=== PATIENT | male | born 1955 | race Caucasian/White ===

== ENCOUNTER 2018-03-25 21:45 | Inpatient (IN) | payer BC ==
[2018-03-25] MEDS: ASPIRIN 325 MG TAB PO (22:40)
[2018-03-25 22:42] LABS: WHITE BLOOD COUNT 5.8 10^3/ul (4.8-10.8)
[2018-03-25 22:42] LABS: ADD MAN DIFF? NO; BASOPHILS % 0.5 % (0.0-2.0); EOSINOPHILS # 0.2 10^3/ul (0.0-0.5); EOSINOPHILS % 3.3 % (0.0-7.0); HEMATOCRIT 38.3 % (42.0-52.0); HEMOGLOBIN 13.3 g/dl (14.0-18.0); LYMPHOCYTES # 1.4 10^3/ul (0.8-2.9); LYMPHOCYTES % 23.4 % (15.0-51.0); MEAN CORPUSCULAR HEMOGLOBIN 30.8 pg (29.0-33.0); MEAN CORPUSCULAR HGB CONC 34.7 g/dl (32.0-37.0); MEAN CORPUSCULAR VOLUME 88.7 fl (82.0-101.0); MEAN PLATELET VOLUME 9.9 fl (7.4-10.4); MONOCYTE # 0.8 10^3/ul (0.3-0.9); MONOCYTES % 14.1 % (0.0-11.0); NEUTROPHIL # 3.4 10^3/ul (1.6-7.5); NEUTROPHILS % 58.4 % (39.0-77.0); PLATELET COUNT 161 10^3/UL (140-415); RED BLOOD COUNT 4.32 10^6/ul (4.70-6.10); RED CELL DISTRIBUTION WIDTH 13.6 % (11.5-14.5)
[2018-03-25 23:03] LABS: ANION GAP 11 (8-16); BLOOD UREA NITROGEN 13 mg/dl (7-20); CALCIUM 8.5 mg/dl (8.4-10.2); CARBON DIOXIDE 27 mmol/L (21-31); CHLORIDE 106 mmol/L (97-110); CREATININE 0.81 mg/dl (0.61-1.24); GLUCOSE 117 mg/dl (70-220); SODIUM 140 mmol/L (135-144)
[2018-03-25 23:16] LABS: B-TYPE NATRIURETIC PEPTIDE 43 PG/ML (0-125); TROPONIN-I < 0.012 ng/ml (0.000-0.120)
[2018-03-26 06:44] LABS: ADD MAN DIFF? NO
[2018-03-26 07:01] LABS: WHITE BLOOD COUNT 5.6 10^3/ul (4.8-10.8)
[2018-03-26 07:01] LABS: BASOPHILS % 0.7 % (0.0-2.0); EOSINOPHILS # 0.3 10^3/ul (0.0-0.5); EOSINOPHILS % 4.8 % (0.0-7.0); HEMATOCRIT 38.4 % (42.0-52.0); HEMOGLOBIN 13.4 g/dl (14.0-18.0); LYMPHOCYTES # 1.4 10^3/ul (0.8-2.9); LYMPHOCYTES % 24.6 % (15.0-51.0); MEAN CORPUSCULAR HEMOGLOBIN 30.8 pg (29.0-33.0); MEAN CORPUSCULAR HGB CONC 34.9 g/dl (32.0-37.0); MEAN CORPUSCULAR VOLUME 88.3 fl (82.0-101.0); MEAN PLATELET VOLUME 10.6 fl (7.4-10.4); MONOCYTE # 0.7 10^3/ul (0.3-0.9); MONOCYTES % 12.7 % (0.0-11.0); NEUTROPHIL # 3.2 10^3/ul (1.6-7.5); NEUTROPHILS % 56.8 % (39.0-77.0); PLATELET COUNT 152 10^3/UL (140-415); RED BLOOD COUNT 4.35 10^6/ul (4.70-6.10); RED CELL DISTRIBUTION WIDTH 13.8 % (11.5-14.5)
[2018-03-26 07:39] LABS: TROPONIN-I < 0.012 ng/ml (0.000-0.120)
[2018-03-26 07:40] LABS: ANION GAP 12 (8-16); BLOOD UREA NITROGEN 13 mg/dl (7-20); CALCIUM 8.5 mg/dl (8.4-10.2); CARBON DIOXIDE 25 mmol/L (21-31); CHLORIDE 108 mmol/L (97-110); CREATININE 0.75 mg/dl (0.61-1.24); GLUCOSE 92 mg/dl (70-220); SODIUM 141 mmol/L (135-144)
[2018-03-26 07:52] LABS: CREATINE KINASE 93 IU/L (23-200)
[2018-03-26] MEDS: RANOLAZINE (SR) 500 MG TAB PO ×2 (08:59→21:12)
[2018-03-26] MEDS: ASPIRIN (EC) 81 MG TAB PO (08:59)
[2018-03-26] MEDS: CLOPIDOGREL 75 MG TAB PO (09:00)
[2018-03-26] MEDS: ISOSORBIDE MONONITRATE(SR)30 MG TAB PO (09:00)
[2018-03-26] MEDS: LISINOPRIL 10 MG TAB PO (09:00)
[2018-03-26 12:10] LABS: CREATINE KINASE 84 IU/L (23-200)
[2018-03-26 12:19] LABS: CK INDEX 0.8; CK-MB 0.71 ng/ml (0.0-2.4); TROPONIN-I < 0.012 ng/ml (0.000-0.120)
[2018-03-26] MEDS: METOPROLOL 25 MG TAB PO ×2 (14:08→21:00)
[2018-03-26 18:48] LABS: TROPONIN-I < 0.012 ng/ml (0.000-0.120)
[2018-03-26] MEDS: ATORVASTATIN 10 MG TAB PO (21:12)
[2018-03-26 23:39] LABS: TROPONIN-I < 0.012 ng/ml (0.000-0.120)
[2018-03-27 06:01] LABS: ADD MAN DIFF? NO
[2018-03-27 06:06] LABS: WHITE BLOOD COUNT 6.6 10^3/ul (4.8-10.8)
[2018-03-27 06:06] LABS: BASOPHILS % 0.6 % (0.0-2.0); EOSINOPHILS # 0.1 10^3/ul (0.0-0.5); EOSINOPHILS % 2.1 % (0.0-7.0); HEMATOCRIT 36.7 % (42.0-52.0); HEMOGLOBIN 12.6 g/dl (14.0-18.0); LYMPHOCYTES # 2.1 10^3/ul (0.8-2.9); LYMPHOCYTES % 31.7 % (15.0-51.0); MEAN CORPUSCULAR HEMOGLOBIN 30.4 pg (29.0-33.0); MEAN CORPUSCULAR HGB CONC 34.3 g/dl (32.0-37.0); MEAN CORPUSCULAR VOLUME 88.4 fl (82.0-101.0); MEAN PLATELET VOLUME 10.3 fl (7.4-10.4); MONOCYTE # 0.8 10^3/ul (0.3-0.9); MONOCYTES % 12.8 % (0.0-11.0); NEUTROPHIL # 3.4 10^3/ul (1.6-7.5); NEUTROPHILS % 52.3 % (39.0-77.0); PLATELET COUNT 150 10^3/UL (140-415); RED BLOOD COUNT 4.15 10^6/ul (4.70-6.10); RED CELL DISTRIBUTION WIDTH 13.7 % (11.5-14.5)
[2018-03-27 06:34] LABS: ANION GAP 13 (8-16); BLOOD UREA NITROGEN 14 mg/dl (7-20); CALCIUM 8.3 mg/dl (8.4-10.2); CARBON DIOXIDE 24 mmol/L (21-31); CHLORIDE 105 mmol/L (97-110); CREATININE 0.87 mg/dl (0.61-1.24); GLUCOSE 99 mg/dl (70-220); POTASSIUM 3.6 mmol/L (3.5-5.1); SODIUM 138 mmol/L (135-144)
[2018-03-27] MEDS ORDERED: DIPHENHYDRAMINE 25 MG CAP (08:30)
[2018-03-27] MEDS: RANOLAZINE (SR) 500 MG TAB PO ×2 (08:34→20:25)
[2018-03-27] MEDS: DIAZEPAM 5 MG TAB PO (08:34)
[2018-03-27] MEDS: METOPROLOL 25 MG TAB PO ×2 (08:34→20:25)
[2018-03-27] MEDS: CLOPIDOGREL 75 MG TAB PO (08:34)
[2018-03-27] MEDS: ASPIRIN (EC) 81 MG TAB PO (08:34)
[2018-03-27] MEDS: LISINOPRIL 10 MG TAB PO (08:34)
[2018-03-27] MEDS: ISOSORBIDE MONONITRATE(SR)30 MG TAB PO (08:35)
[2018-03-27] MEDS: DIPHENHYDRAMINE 50 MG CAP PO (08:35)
[2018-03-27] MEDS ORDERED: HEPARIN 1000 UNITS/ML 10 ML INJ (09:01)
[2018-03-27] MEDS ORDERED: LIDOCAINE 1% (MDV) 20 ML INJ (09:01)
[2018-03-27] MEDS ORDERED: IODIXANOL LOCM 100 ML BTL ×2 (09:01→10:01)
[2018-03-27] MEDS ORDERED: MIDAZOLAM 1 MG/ML 2 ML INJ (09:02)
[2018-03-27] MEDS ORDERED: NITROGLYCERIN (IC) 100 MCG/ML INJ (09:02)
[2018-03-27] MEDS ORDERED: VERAPAMIL 5 MG INJ (09:02)
[2018-03-27] MEDS ORDERED: FENTAnyl 50 MCG/ML VIAL (09:02)
[2018-03-27] MEDS ORDERED: ACETAMINOPHEN 325 MG TAB PO (10:30)
[2018-03-27] MEDS ORDERED: morphine 2 MG INJ IV (10:30)
[2018-03-27] MEDS ORDERED: ONDANSETRON 4 MG INJ IV (10:30)
[2018-03-27] MEDS ORDERED: AL HYDROX/MG HYDROX/SIMETH 30 ML CUP PO (10:30)
[2018-03-27] MEDS: SOD CHLORIDE 0.9% 1,000 ML IV (10:37)
[2018-03-27] MEDS ORDERED: morphine LIQ (10 MG/5 ML) CUP PO (18:30)
[2018-03-27] MEDS: ATORVASTATIN 10 MG TAB PO (20:25)
[2018-03-28] MEDS: CLOPIDOGREL 75 MG TAB PO (08:47)
[2018-03-28] MEDS: RANOLAZINE (SR) 500 MG TAB PO (08:47)
[2018-03-28] MEDS: METOPROLOL 25 MG TAB PO (08:48)
[2018-03-28] MEDS: ASPIRIN (EC) 81 MG TAB PO (08:48)
[2018-03-28] MEDS: LISINOPRIL 10 MG TAB PO (08:49)
[2018-03-28] MEDS: ISOSORBIDE MONONITRATE(SR)30 MG TAB PO (08:49)
[2018-03-31] MEDS ORDERED: ERGOCALCIFEROL 50,000 UNIT CAP PO (09:00)
== END 2018-03-28 16:44 | disposition home or self-care (01) | DRG 287 ==
LOC: TEL 03-27 06:07 → E/R 21:45 → TEL 23:24
PROC: 4A023N7 Measurement of Cardiac Sampling and Pressure, Left Heart, Percutaneous Approach (ICD-10-PCS; principal; 2018-03-27 08:49)
PROC: B211YZZ Fluoroscopy of Multiple Coronary Arteries using Other Contrast (ICD-10-PCS; 2018-03-27 08:49)
DX: R07.9 Chest pain, unspecified (principal); I25.10 Atherosclerotic heart disease of native coronary artery without angina pectoris; I10 Essential (primary) hypertension; E78.5 Hyperlipidemia, unspecified; Z95.5 Presence of coronary angioplasty implant and graft; E66.9 Obesity, unspecified; Z68.35 Body mass index [BMI] 35.0-35.9, adult; Z79.82 Long term (current) use of aspirin; Z79.02 Long term (current) use of antithrombotics/antiplatelets; I95.9 Hypotension, unspecified; R94.39 Abnormal result of other cardiovascular function study; I25.2 Old myocardial infarction
CPT/HCPCS: 36415; 71045; 80048; 82550; 82553; 83880; 84484; 85025; 93005; 93458; 99285-25